=== PATIENT | female | born 1935 | race Caucasian/White ===

== ENCOUNTER 2020-06-16 10:05 | Emergency (ER) | payer MEDICARE, OTHER ==
--- NOTE | 2020-06-16 11:22 | EDM.PDOC ---
ED HPI GENERAL MEDICAL PROBLEM - General Chief Complaint: Gastrointestinal Problem Stated Complaint: WEAKNESS Time Seen by Provider: 06/16/20 11:00 Source of Information: Reports: Patient, Family History Limitations: Reports: No Limitations - History of Present Illness INITIAL COMMENTS - FREE TEXT/NARRATIVE: 85-year-old female who has had watery diarrhea for the past 4 days. Tested for Covid on Monday, was informed yesterday that that was negative. No shortness of breath, fevers, blood in the diarrhea or nausea or vomiting. It tends to be worse when she gets up in the morning. She had another large episode of watery diarrhea this morning and felt really weak so felt she should be checked. She ambulated into the emergency room under her own power. She is using some Imodium to slow the diarrhea down. Onset: Gradual Duration: Day(s): (4 days) Associated Symptoms: Reports: Weakness, Other (Lightheaded with activity) - Related Data Allergies Allergy/AdvReac Type Severity Reaction Status Date / Time amlodipine Allergy Swelling Verified 03/17/20 13:37 mesalamine [From Lialda] Allergy Renal Verified 03/17/20 13:37 Failure Home Meds: Home Meds Aspirin [Ecotrin EC] 81 mg PO DAILY 06/24/19 [History] Ibuprofen 200 mg PO Q4H PRN 06/24/19 [History] Levothyroxine [Synthroid] 50 mcg PO DAILY 06/24/19 [History] Losartan/Hydrochlorothiazide [Losartan-HCTZ 100-25 MG] 1 tab PO DAILY 06/24/19 [History] Multivitamin with Minerals [Multiple Vitamin] 1 tab PO DAILY 06/24/19 [History] amLODIPine [Norvasc] 2.5 mg PO DAILY 06/24/19 [History] Past Medical History HEENT History: Reports: Impaired Vision Cardiovascular History: Reports: None Respiratory History: Reports: None Gastrointestinal History: Reports: None Genitourinary History: Reports: None 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 left hip pain Neurological History: Reports: None Psychiatric History: Reports: None Endocrine/Metabolic History: Reports: None Hematologic History: Reports: None Immunologic History: Reports: None Oncologic (Cancer) History: Reports: None Dermatologic History: Reports: None - Infectious Disease History Infectious Disease History: Reports: Chicken Pox, Measles, Mumps - Past Surgical History Head Surgeries/Procedures: Reports: None HEENT Surgical History: Reports: None Musculoskeletal Surgical History: Reports: Shoulder Replacement Other Musculoskeletal Surgeries/Procedures:: left Social & Family History - Tobacco Use Tobacco Use Status *Q: Never Tobacco User - Caffeine Use Caffeine Use: Reports: Coffee, Tea - Recreational Drug Use Recreational Drug Use: No ED ROS GENERAL - Review of Systems Review Of Systems: See Below Constitutional: Reports: Malaise. Denies: Fever, Chills HEENT: Reports: No Symptoms Respiratory: Denies: Shortness of Breath Cardiovascular: Denies: Chest Pain GI/Abdominal: Reports: Diarrhea. Denies: Abdominal Pain, Nausea Musculoskeletal: Reports: No Symptoms Skin: Reports: No Symptoms Neurological: Reports: Dizziness, Weakness Psychiatric: Reports: No Symptoms ED EXAM, GI/ABD - Physical Exam Exam: See Below Exam Limited By: No Limitations General Appearance: Alert, No Apparent Distress Eyes: Bilateral: Normal Appearance Head: Atraumatic Respiratory/Chest: Lungs Clear Cardiovascular: Regular Rate, Rhythm. No: Tachycardia GI/Abdominal Exam: Normal Bowel Sounds (Bowel sounds are very active), Soft. No: Tender Extremities: No: Pedal Edema Neurological: Alert, Oriented, No Motor/Sensory Deficits Psychiatric: Normal Affect, Normal Mood Skin Exam: Warm, Dry Course - Vital Signs Last Recorded V/S: Last Vital Signs Temp 98.2 F 06/16/20 10:47 Pulse 88 06/16/20 10:47 Resp 16 06/16/20 10:47 BP 104/47 L 06/16/20 10:47 Pulse Ox 99 06/16/20 10:47 - Orders/Labs/Meds Orders: Active Orders 24 hr Category Date Time Status CULTURE STOOL + SHIGATOX [RM] Stat Lab 06/16/20 11:16 Ordered WBC, STOOL [OP] Stat Lab 06/16/20 11:16 Ordered Labs: Laboratory Tests 06/16/20 06/16/20 Range/Units 11:27 11:27 WBC 7.8 (4.5-11.0) K/uL RBC 3.71 (3.30-5.50) M/uL Hgb 11.0 L (12.0-15.0) g/dL Hct 34.4 L (36.0-48.0) % MCV 93 (80-98) fL MCH 30 (27-31) pg MCHC 32 (32-36) % Plt Count 337 (150-400) K/uL Add Manual Diff Yes Neutrophils % (Manual) 63 (36-66) % Band Neutrophils % 5 (5-11) % Lymphocytes % (Manual) 19 L (24-44) % Monocytes % (Manual) 13 H (2-6) % Sodium 139 L (140-148) mmol/L Potassium 3.2 L (3.6-5.2) mmol/L Chloride 101 (100-108) mmol/L Carbon Dioxide 26 (21-32) mmol/L Anion Gap 15.2 H (5.0-14.0) mmol/L BUN 30 H (7-18) mg/dL Creatinine 1.3 H (0.6-1.0) mg/dL Est Cr Clr Drug Dosing 25.48 mL/min Estimated GFR (MDRD) 39 L (>60) Glucose 114 H (74-106) mg/dL Calcium 8.7 (8.5-10.1) mg/dL Total Bilirubin 0.5 (0.2-1.0) mg/dL AST 11 L (15-37) U/L ALT 18 (12-78) U/L Alkaline Phosphatase 77 (46-116) U/L Total Protein 6.5 (6.4-8.2) g/dL Albumin 3.0 L (3.4-5.0) g/dL Globulin 3.5 (2.3-3.5) g/dL Albumin/Globulin Ratio 0.9 L (1.2-2.2) Meds: Medications Discontinued Medications Generic Name Dose Route Start Last Admin Trade Name Freq PRN Reason Stop Dose Admin Sodium Chloride 1,000 mls @ 1,000 mls/hr 06/16/20 11:30 06/16/20 11:23 Normal Saline IV 1,000 mls/hr ASDIRECTED [facility] Administration - Re-Assessments/Exams Free Text/Narrative Re-Assessment/Exam: 06/16/20 12:40 1 L normal saline was initiated and CBC CMP ordered. Stool sample was attempted to be collected. Labs returned reassuring other than mild volume contraction or dehydration. Despite being in the emergency room for over 2 hours she was unable to give a sample. She will be discharged and will recheck in 2 to 3 days if not impr oving. Departure - Departure Time of Disposition: 14:02 Disposition: Home, Self-Care 01 Clinical Impression: Dehydration, mild Diarrhea Qualifiers: Diarrhea type: unspecified type Qualified Code(s): R19.7 - Diarrhea, unspecified - Discharge Information Instructions: Diarrhea, Adult Referrals: Chau Spangler MD [Primary Care Provider] - Forms: ED Department Discharge Care Plan Goals: Increase activity as tolerated, attempt to stay hydrated with fluids and return in 2 to 3 days if not improving satisfactorily. Return sooner anytime if you feel you are worsening such as fever, increased pain or worsening diarrhea. Imodium would be helpful to slow down the diarrhea over the next few days. Sepsis Event Note (ED) - Evaluation Sepsis Screening Result: No Definite Risk - Focused Exam Vital Signs: Vital Signs Temp Pulse Resp BP Pulse Ox 06/16/20 10:47 98.2 F 88 16 104/47 L 99 06/16/20 10:44 98.2 F 88 16 104/47 L 99 - My Orders Last 24 Hours: My Active Orders 06/16/20 11:16 CULTURE STOOL + SHIGATOX [RM] Stat WBC, STOOL [OP] Stat - Assessment/Plan Last 24 Hours: My Active Orders 06/16/20 11:16 CULTURE STOOL + SHIGATOX [RM] Stat WBC, STOOL [OP] Stat
[2020-06-16] MEDS ORDERED: Sodium Chloride 0.9% 1,000 ML IV SCH (11:30)
== END 2020-06-16 13:10 | disposition home or self-care (01) ==
LOC: JP.ED 10:05
DX: E86.0 Dehydration (principal); R19.7 Diarrhea, unspecified; Z88.8 Allergy status to other drugs, medicaments and biological substances; Z79.82 Long term (current) use of aspirin; Z79.899 Other long term (current) drug therapy
CPT/HCPCS: 36415; 80053; 85025; 99284; J7030; 99283

== ENCOUNTER 2020-06-19 14:34 | Emergency (ER) | payer MEDICARE, OTHER ==
--- NOTE | 2020-06-19 15:32 | EDM.PDOC ---
ED HPI GENERAL MEDICAL PROBLEM - General Chief Complaint: Gastrointestinal Problem Stated Complaint: DIARRHEA Time Seen by Provider: 06/19/20 14:50 Source of Information: Reports: Patient, Family History Limitations: Reports: No Limitations - History of Present Illness INITIAL COMMENTS - FREE TEXT/NARRATIVE: 85-year-old female who I saw 3 days ago with persistent diarrhea and weakness, also mild dehydration, returns today because she is still having some diarrhea. She thinks she is slowly improving, she took Imodium once last evening. She just still feels weak and is wondering why she is not better. No shortness of breath or chest pain, no significant abdominal pain, no blood in the diarrhea. Onset: Gradual Duration: Day(s): (Symptoms have been persistent for the last several days) Associated Symptoms: Reports: Malaise, Weakness. Denies: Fever/Chills, Nausea/Vomiting Right Hip Pain Score (Numeric/FACES): 8 - Related Data Allergies Allergy/AdvReac Type Severity Reaction Status Date / Time amlodipine Allergy Swelling Verified 06/19/20 14:52 mesalamine [From Lialda] Allergy Renal Verified 06/19/20 14:52 Failure Home Meds: Home Meds Aspirin [Ecotrin EC] 81 mg PO DAILY 06/24/19 [History] Ibuprofen 200 mg PO Q4H PRN 06/24/19 [History] Levothyroxine [Synthroid] 50 mcg PO DAILY 06/24/19 [History] Losartan/Hydrochlorothiazide [Losartan-HCTZ 100-25 MG] 1 tab PO DAILY 06/24/19 [History] Multivitamin with Minerals [Multiple Vitamin] 1 tab PO DAILY 06/24/19 [History] amLODIPine [Norvasc] 2.5 mg PO DAILY 06/24/19 [History] Past Medical History HEENT History: Reports: Impaired Vision Cardiovascular History: Reports: Hypertension Respiratory History: Reports: None Gastrointestinal History: Reports: None Genitourinary History: Reports: None 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 left hip pain Neurological History: Reports: None Psychiatric History: Reports: None Endocrine/Metabolic History: Reports: Hypothyroidism Hematologic History: Reports: None Immunologic History: Reports: None Oncologic (Cancer) History: Reports: None Dermatologic History: Reports: None - Infectious Disease History Infectious Disease History: Reports: Chicken Pox, Measles, Mumps - Past Surgical History Head Surgeries/Procedures: Reports: None HEENT Surgical History: Reports: None Musculoskeletal Surgical History: Reports: Shoulder Replacement Other Musculoskeletal Surgeries/Procedures:: left Social & Family History - Tobacco Use Tobacco Use Status *Q: Never Tobacco User Second Hand Smoke Exposure: No - Caffeine Use Caffeine Use: Reports: Coffee, Tea - Alcohol Use Days Per Week of Alcohol Use: 0 - Recreational Drug Use Recreational Drug Use: No ED ROS GENERAL - Review of Systems Review Of Systems: See Below Constitutional: Denies: Fever, Chills Respiratory: Denies: Shortness of Breath Cardiovascular: Denies: Chest Pain GI/Abdominal: Reports: Diarrhea, Decreased Appetite. Denies: Abdominal Pain : Reports: No Symptoms Musculoskeletal: Reports: Other (Hip pain which is chronic) Skin: Reports: No Symptoms Neurological: Reports: No Symptoms ED EXAM, GI/ABD - Physical Exam Exam: See Below Exam Limited By: No Limitations General Appearance: Alert, No Apparent Distress Eyes: Bilateral: Normal Appearance Respiratory/Chest: No Respiratory Distress GI/Abdominal Exam: Soft, Other (Very hyperactive bowel sounds today, no significant tenderness to palpation) Neurological: Alert, Oriented Psychiatric: Normal Affect, Normal Mood Course - Vital Signs Last Recorded V/S: Last Vital Signs Temp 97.8 F 06/19/20 14:50 Pulse 86 06/19/20 14:50 Resp 16 06/19/20 14:50 BP 113/58 L 06/19/20 14:50 Pulse Ox 98 06/19/20 14:50 - Orders/Labs/Meds Orders: Active Orders 24 hr Category Date Time Status CULTURE STOOL + SHIGATOX [RM] Stat Lab 06/19/20 15:56 Results Clostridium [CLOS DIFFICILE PCR W/REFLEX] [RM] Stat Lab 06/19/20 15:56 Results - Re-Assessments/Exams Free Text/Narrative Re-Assessment/Exam: 06/19/20 15:33 We will attempt to get a stool sample again today, patient was fed a small amount of food to see if it would trigger diarrhea. I do not think any reevaluation of labs is necessary. 06/19/20 15:57 After about 40 minutes the patient was able to give a stool sample, very watery somewhat greenish in color and foamy and appearance. Stool was sent for WBC, C. difficile, and culture. 06/19/20 17:32 C. difficile surprisingly was positive, patient will be put on 125 mg of oral vancomycin 3 times a day. She can recheck next week if not improving. Departure - Departure Time of Disposition: 17:45 Disposition: Home, Self-Care 01 Clinical Impression: C. difficile diarrhea - Discharge Information Instructions: Clostridioides Difficile Infection, [id number] Referrals: Chau Spangler MD [Primary Care Provider] - Forms: ED Department Discharge Care Plan Goals: Take antibiotic 3 times a day for at least 10 days. Stay hydrated and increase activity and diet as tolerated. Consider rechecking next week if not improving satisfactorily. Sepsis Event Note (ED) - Evaluation Sepsis Screening Result: No Definite Risk - Focused Exam Vital Signs: Vital Signs Temp Pulse Resp BP Pulse Ox 06/19/20 14:50 97.8 F 86 16 113/58 L 98 - My Orders Last 24 Hours: My Active Orders 06/19/20 15:56 CULTURE STOOL + SHIGATOX [RM] Stat Clostridium [CLOS DIFFICILE PCR W/REFLEX] [RM] Stat - Assessment/Plan Last 24 Hours: My Active Orders 06/19/20 15:56 CULTURE STOOL + SHIGATOX [RM] Stat Clostridium [CLOS DIFFICILE PCR W/REFLEX] [RM] Stat
== END 2020-06-19 17:45 | disposition home or self-care (01) ==
LOC: JP.ED 14:34
DX: A04.72 Enterocolitis due to Clostridium difficile, not specified as recurrent (principal); I10 Essential (primary) hypertension; E03.9 Hypothyroidism, unspecified; Z79.82 Long term (current) use of aspirin; Z79.899 Other long term (current) drug therapy; Z88.8 Allergy status to other drugs, medicaments and biological substances
CPT/HCPCS: 87046; 87493; 87899; 89055; 99283; 99284

== ENCOUNTER 2020-07-27 05:11 | Inpatient (IN) | payer MEDICARE, OTHER ==
[2020-07-27] MEDS: Nozin Nasal Sanitizer NASBOTH SCH ×2 (06:24→21:41)
[2020-07-27] MEDS ORDERED: Lactated Ringers 1,000 ML IV SCH (06:30)
[2020-07-27] MEDS ORDERED: Povidone-Iodine 10% Soln 118.25 ML Bottle ONE (06:38)
[2020-07-27] MEDS ORDERED: ceFAZolin 2 GM in Premix Bag 1 BAG IV ONE (07:00)
[2020-07-27] MEDS ORDERED: fentaNYL 100 MCG/2 ML SDV ONE (07:26)
[2020-07-27] MEDS ORDERED: Propofol 200 MG/20 ML SDV ONE (07:26)
[2020-07-27] MEDS ORDERED: Midazolam 1 MG/ML 2 ML SDV ONE (07:26)
[2020-07-27] MEDS ORDERED: Lactated Ringers 1,000 ML ONE (08:24)
[2020-07-27] MEDS ORDERED: ePHEDrine 50 MG/ML SDV ONE (08:26)
[2020-07-27] MEDS ORDERED: Magnesium Hydroxide 400 MG/5 ML Susp 30 ML Cup PO PRN (09:35)
[2020-07-27] MEDS ORDERED: Morphine 2 MG/ML SYRINGE IV PRN (09:35)
[2020-07-27] MEDS ORDERED: Acetaminophen 325 MG Tab PO PRN (09:35)
[2020-07-27] MEDS ORDERED: Ondansetron 4 MG/2 ML SDV IVPUSH PRN (09:35)
[2020-07-27] MEDS ORDERED: Acetaminophen/HYDROcodone 325-5 MG Tab PO PRN (09:35)
--- NOTE | 2020-07-27 13:03 | CR ---
Pelvis 1V or 2V CLINICAL HISTORY: Postop FINDINGS: Patient is status post total left hip arthroplasty. Components appear well seated. There is some intra-articular and subcutaneous air. IMPRESSION: Status post total left hip arthroplasty
[2020-07-27] MEDS: ceFAZolin 1 GM in Premix Bag 1 BAG IV SCH ×2 (14:16→21:41)
[2020-07-27] MEDS: Acetaminophen/oxyCODONE 325-5 MG Tab PO PRN ×3 (14:37→22:40)
[2020-07-27] MEDS: Sodium Chloride 0.9% 1,000 ML IV SCH (16:11)
[2020-07-27] MEDS ORDERED: Nozin Nasal Sanitizer NASBOTH SCH (21:00)
[2020-07-28] MEDS: ceFAZolin 1 GM in Premix Bag 1 BAG IV SCH (06:15)
[2020-07-28] MEDS: Levothyroxine 50 MCG Tab PO SCH (07:55)
[2020-07-28] MEDS ORDERED: amLODIPine 5 MG Tab PO SCH (09:00)
[2020-07-28] MEDS: Sodium Chloride 0.9% 1,000 ML IV SCH (09:16)
[2020-07-28] MEDS: Hydrochlorothiazide 25 MG Tab PO SCH (09:18)
[2020-07-28] MEDS: Lactobacillus Rhamnosus GG (Probiotic) Cap PO SCH (09:18)
[2020-07-28] MEDS: Enoxaparin 30 MG/0.3 ML Syringe SUBCUT SCH (09:18)
[2020-07-28] MEDS: Docusate Sodium 100 MG Cap PO SCH (09:18)
[2020-07-28] MEDS: Nozin Nasal Sanitizer NASBOTH SCH ×2 (09:18→20:26)
[2020-07-28] MEDS: Losartan 50 MG Tab PO SCH (09:19)
--- NOTE | 2020-07-28 12:10 | PCM.SURGPN ---
- General Info Date of Service: 07/28/20 Date of Surgery/Procedure: 07/27/20 POD#: 1 Post-Op Diagnosis: left hip osteoarthritis Functional Status: Reports: Pain Controlled, Tolerating Diet, Ambulating - Review of Systems General: Reports: No Symptoms HEENT: Reports: No Symptoms Pulmonary: Reports: No Symptoms Cardiovascular: Reports: No Symptoms Gastrointestinal: Reports: No Symptoms, Nausea (nausea this morning, which has since resolved ) Musculoskeletal: Reports: Leg Pain (left ), Joint Pain (left hip ) Skin: Reports: No Symptoms Neurological: Reports: No Symptoms Psychiatric: Reports: No Symptoms - Patient Data Vitals - Most Recent: Last Vital Signs Temp 96.9 F 07/28/20 11:00 Pulse 80 07/28/20 11:00 Resp 18 07/28/20 11:00 BP 141/48 H 07/28/20 11:00 Pulse Ox 97 07/28/20 11:00 Weight - Most Recent: 119 lb I&O - Last 24 Hours: Intake & Output 07/27/20 07/28/20 07/28/20 22:59 06:59 14:59 Intake Total 536 2522 592 Output Total 325 200 250 Balance 211 2322 342 Lab Results Last 24 Hrs: Laboratory Results - last 24 hr 07/28/20 Range/Units 06:03 WBC 7.2 (4.5-11.0) K/uL RBC 3.32 (3.30-5.50) M/uL Hgb 9.8 L D (12.0-15.0) g/dL Hct 31.2 L (36.0-48.0) % MCV 94 (80-98) fL MCH 30 (27-31) pg MCHC 31 L (32-36) % Plt Count 274 (150-400) K/uL Med Orders - Current: Current Medications Acetaminophen (Tylenol) 650 mg PO Q4H PRN PRN Reason: Pain/Fever Hydrocodone Bitart/Acetaminophen ([place] 325-5 Mg) 1 tab PO Q4H PRN PRN Reason: Pain Last Admin: 07/27/20 10:26 Dose: 1 tab Documented by: Amlodipine Besylate (Norvasc) 2.5 mg PO DAILY [facility] Bandage/Support Products ( Nasal Electro Plater) 1 applic NASBOTH BID [facility] Stop: 08/02/20 21:01 Last Admin: 07/28/20 09:18 Dose: 1 applic Documented by: Docusate Sodium (Colace) 100 mg PO DAILY [facility] Last Admin: 07/28/20 09:18 Dose: 100 mg Documented by: Enoxaparin Sodium (Lovenox) 30 mg SUBCUT DAILY [facility] Last Admin: 07/28/20 09:18 Dose: 30 mg Documented by: Hydrochlorothiazide (Hydrochlorothiazide) 25 mg PO DAILY [facility] Last Admin: 07/28/20 09:18 Dose: 25 mg Documented by: Sodium Chloride (Normal Saline) 1,000 mls @ 125 mls/hr IV ASDIRECTED [facility] Last Admin: 07/28/20 09:16 Dose: 125 mls/hr Documented by: Lactobacillus Rhamnosus (Culturelle) 1 cap PO DAILY [facility] Last Admin: 07/28/20 09:18 Dose: 1 cap Documented by: Levothyroxine Sodium (Synthroid) 50 mcg PO DAILY@0730 [facility] Last Admin: 07/28/20 07:55 Dose: 50 mcg Documented by: Losartan Potassium (Cozaar) 100 mg PO DAILY [facility] Last Admin: 07/28/20 09:19 Dose: 100 mg Documented by: Magnesium Hydroxide (Milk Of Magnesia) 30 ml PO Q6H PRN PRN Reason: Stool Softener Morphine Sulfate (Morphine) 1 mg IV Q1H PRN PRN Reason: Pain Last Admin: 07/27/20 12:09 Dose: 1 mg Documented by: Ondansetron HCl (Zofran) 4 mg IVPUSH Q6H PRN PRN Reason: Nausea/Vomiting Last Admin: 07/28/20 07:17 Dose: 4 mg Documented by: Oxycodone/Acetaminophen (Percocet 325-5 Mg) 1 - 2 tab PO Q4H PRN PRN Reason: Pain Last Admin: 07/27/20 22:40 Dose: 2 tab Documented by: Discontinued Medications Ephedrine Sulfate (Ephedrine Sulfate) Confirm Administered Dose 50 mg .ROUTE .STK-MED ONE Stop: 07/27/20 08:27 Fentanyl (Sublimaze) Confirm Administered Dose 100 mcg .ROUTE .STK-MED ONE Stop: 07/27/20 07:27 Cefazolin Sodium/Dextrose 2 gm (/ Premix) 50 mls @ 100 mls/hr IV ONETIME ONE Stop: 07/27/20 07:29 Last Admin: 07/27/20 07:44 Dose: 100 mls/hr Documented by: Lactated Ringer's (Ringers, Lactated) 1,000 mls @ 75 mls/hr IV ASDIRECTED [facility] Last Admin: 07/27/20 06:45 Dose: 75 mls/hr Documented by: Lactated Ringer's (Ringers, Lactated) Confirm Administered Dose 1,000 mls @ as directed .ROUTE .STK-MED ONE Stop: 07/27/20 08:25 Cefazolin Sodium/Dextrose 1 gm (/ Premix) 50 mls @ 100 mls/hr IV Q8H [facility] Stop: 07/28/20 06:29 Last Admin: 07/28/20 06:15 Dose: 100 mls/hr Documented by: Midazolam HCl (Versed 1 Mg/Ml) Confirm Administered Dose 2 mg .ROUTE .STK-MED ONE Stop: 07/27/20 07:27 Povidone Iodine (Betadine 10% Soln) Confirm Administered Dose 1 ml .ROUTE .STK- MED ONE Stop: 07/27/20 06:39 Last Admin: 07/27/20 08:29 Dose: 40 ml Documented by: Propofol (Diprivan 20 Ml) Confirm Administered Dose 200 mg .ROUTE .STK-MED ONE Stop: 07/27/20 07:27 - Exam Wound/Incisions: Dressing Dry and Intact General: Alert, Oriented, Cooperative, No Acute Distress Extremities: Pedal Edema (very mild, left ), Leg Pain (left ), Limited Range of Motion (left hip joint ) Skin: Dry, Intact Neurological: No New Focal Deficit Psy/Mental Status: Alert, Normal Affect, Normal Mood Sepsis Event Note - Evaluation Sepsis Screening Result: No Definite Risk - Focused Exam Vital Signs: Vital Signs Temp Pulse Resp BP BP Pulse Ox 07/28/20 11:00 96.9 F 80 18 141/48 H 97 07/28/20 09:19 125/56 L 07/28/20 07:23 97.9 F 76 16 125/56 L 93 L 07/28/20 05:00 99.3 F 79 18 98/58 L 97 07/28/20 00:36 98.4 F 77 18 98/50 L 98 - Problem List & Annotations (1) Status post total hip replacement, left SNOMED Code(s): 364738628358, 867600864681 Code(s): Z96.642 - PRESENCE OF LEFT ARTIFICIAL HIP JOINT Status: Acute Current Visit: Yes (2) Posthemorrhagic anemia SNOMED Code(s): 849641940 Code(s): D50.0 - IRON DEFICIENCY ANEMIA SECONDARY TO BLOOD LOSS (CHRONIC) Status: Acute Current Visit: Yes - Problem List Review Problem List Initiated/Reviewed/Updated: Yes - My Orders Last 24 Hours: Active Orders 24 hr Category Date Time Status DC Contreras Catheter [Urinary Catheter Removal] [RC] PER Care 07/28/20 12:02 Active UNIT ROUTINE Regular Diet [DIET] Diet 07/27/20 Lunch Active BASIC METABOLIC PANEL,BMP [CHEM] Routine Lab 07/29/20 09:00 Ordered Docusate Sodium [Colace] Med 07/28/20 09:00 Active 100 mg PO DAILY Enoxaparin [Lovenox] Med 07/28/20 09:00 Active 30 mg SUBCUT DAILY Lactobacillus Rhamnosus GG [Culturelle] Med 07/28/20 09:00 Active 1 cap PO DAILY Levothyroxine [Synthroid] Med 07/28/20 07:30 Active 50 mcg PO DAILY@0730 Losartan [Cozaar] Med 07/28/20 09:00 Active 100 mg PO DAILY amLODIPine [Norvasc] Med 07/28/20 09:00 Hold 2.5 mg PO DAILY hydroCHLOROthiazide Med 07/28/20 09:00 Active 25 mg PO DAILY Convert IV to Saline Lock [OM.PC] Routine Oth 07/28/20 12:03 Ordered Medication Orders Acetaminophen (Tylenol) 650 mg PO Q4H PRN PRN Reason: Pain/Fever Hydrocodone Bitart/Acetaminophen ([place] 325-5 Mg) 1 tab PO Q4H PRN PRN Reason: Pain Last Admin: 07/27/20 10:26 Dose: 1 tab Documented by: BETINA Amlodipine Besylate (Norvasc) 2.5 mg PO DAILY [facility] Bandage/Support Products ( Nasal Electro Plater) 1 applic NASBOTH BID [facility] Stop: 08/02/20 21:01 Last Admin: 07/28/20 09:18 Dose: 1 applic Documented by: Admin: 07/27/20 21:41 Dose: 1 applic Documented by: Admin: 07/27/20 06:24 Dose: 1 applic Documented by: TORY Docusate Sodium (Colace) 100 mg PO DAILY [facility] Last Admin: 07/28/20 09:18 Dose: 100 mg Documented by: BETINA Enoxaparin Sodium (Lovenox) 30 mg SUBCUT DAILY [facility] Last Admin: 07/28/20 09:18 Dose: 30 mg Documented by: BETINA Hydrochlorothiazide (Hydrochlorothiazide) 25 mg PO DAILY [facility] Last Admin: 07/28/20 09:18 Dose: 25 mg Documented by: BETINA Sodium Chloride (Normal Saline) 1,000 mls @ 125 mls/hr IV ASDIRECTED [facility] Last Admin: 07/28/20 09:16 Dose: 125 mls/hr Documented by: Infusion: 07/28/20 00:11 Dose: 125 mls/hr Documented by: Admin: 07/27/20 16:11 Dose: 125 mls/hr Documented by: BETINA Lactobacillus Rhamnosus (Culturelle) 1 cap PO DAILY [facility] Last Admin: 07/28/20 09:18 Dose: 1 cap Documented by: BETINA Levothyroxine Sodium (Synthroid) 50 mcg PO DAILY@0730 [facility] Last Admin: 07/28/20 07:55 Dose: 50 mcg Documented by: BETINA Losartan Potassium (Cozaar) 100 mg PO DAILY [facility] Last Admin: 07/28/20 09:19 Dose: 100 mg Documented by: BETINA Magnesium Hydroxide (Milk Of Magnesia) 30 ml PO Q6H PRN PRN Reason: Stool Softener Morphine Sulfate (Morphine) 1 mg IV Q1H PRN PRN Reason: Pain Last Admin: 07/27/20 12:09 Dose: 1 mg Documented by: BETINA Ondansetron HCl (Zofran) 4 mg IVPUSH Q6H PRN PRN Reason: Nausea/Vomiting Last Admin: 07/28/20 07:17 Dose: 4 mg Documented by: BETINA Oxycodone/Acetaminophen (Percocet 325-5 Mg) 1 - 2 tab PO Q4H PRN PRN Reason: Pain Last Admin: 07/27/20 22:40 Dose: 2 tab Documented by: Admin: 07/27/20 18:32 Dose: 2 tab Documented by: Admin: 07/27/20 14:37 Dose: 2 tab Documented by: BETINA - Assessment Assessment (Free Text/Narrative):: Assessment: Patient is a pleasant 85 y/o female, POD#1, s/p left CHACHO. Patient tolerated surgery well with no complications. Patient was able to ambulate in room with FWW yesterday after the procedure. Participated in physical therapy today and ambulated 50 ft with FWW. Anticipate another physical therapy session this afternoon. Patient participated in occupational therapy session yesterday afternoon and this morning, able to complete ADLS with minimal assistance. Patient feels pain is being well managed at this time. Did have some nausea prior to breakfast this morning. Last pain medication prior to nausea was administered at 2240 yesterday evening, so seems unlikely the nausea is related to pain medications. Patient given Zofran and has not had any nausea/emesis since, but did decide to forgo breakfast. Has had some post-operative hypotension; home Amlodipine dose was held this morning. Patient has Amlodipine listed as an allergy; states years ago when she took it, she would swell up and stopped taking it. Recently restarted medication and reports she hasnt had any swelling concerns. Patient HgB did drop 3.4 units after operation. Patient had a transfusion prior to the surgery on 07/23/20, receiving 2 units of pRBCs. Unsure of what caused the anemia prior to operation. Suspect that acute posthemorrhagic anemia is contributing to her current HgB levels. Patient denies dyspnea and lightheadedness at this time. Patient anticipates discharge to home with home health; states daughter will also be staying with her through Monday to help. States her will also be available to help with laundry and cooking. Patient status changed from SDS to inpatient, as patient requires additional physical therapy services at this time to be safe for discharge to home. Exam: Left hip dressing is dry and intact. No surrounding erythema or warmth to touch. Very mild pedal edema of left leg. Plan: -Discontinued Contreras and IV fluids this afternoon -Continue with physical and occupational therapy while inpatient -Dressing change to be performed by orthopedic provider tomorrow -Anticipate discharge to home with home health referral, possibly tomorrow or , pending progress with physical therapy and mobility. -BMP ordered for tomorrow morning to re-assess potassium levels, as she was hypokalemic prior to operation.
[2020-07-28] MEDS: Acetaminophen/oxyCODONE 325-5 MG Tab PO PRN (20:26)
[2020-07-29] MEDS: Levothyroxine 50 MCG Tab PO SCH (07:40)
[2020-07-29] MEDS: Docusate Sodium 100 MG Cap PO SCH (09:01)
[2020-07-29] MEDS: Nozin Nasal Sanitizer NASBOTH SCH (09:01)
[2020-07-29] MEDS: Enoxaparin 30 MG/0.3 ML Syringe SUBCUT SCH (09:02)
[2020-07-29] MEDS: Hydrochlorothiazide 25 MG Tab PO SCH (09:02)
[2020-07-29] MEDS: Lactobacillus Rhamnosus GG (Probiotic) Cap PO SCH (09:02)
[2020-07-29] MEDS: Losartan 50 MG Tab PO SCH (09:04)
[2020-07-29] MEDS: Acetaminophen/oxyCODONE 325-5 MG Tab PO PRN (12:36)
--- NOTE | 2020-07-29 14:50 | PCM.DCSUM1 ---
Discharge Summary - Hospital Course Brief History: Patient is an 85 y/o female, s/p left CHACHO, POD #2. Patient had osteoarthritis of the left hip; she had tried conservative management with no significant pain relief. Due to failed conservative management and the severity of osteoarthritis on the xrays, patient opted for definitive surgical management. Diagnosis: Stroke: No Modified Amelia Scale: No Symptoms at All Modified Amelia Scale Score: 0 - Discharge Data Discharge Date: 07/29/20 Discharge Disposition: Home, W Home Health Agency 06 Condition: Good - Referral to Home Health Date of Face to Face Encounter: 07/29/20 Reason for Homebound Status: Able to ambulate with FWW safely and do ADLs with minimal assistance; available for help, home health for additional aid. Primary Care Physician: Chau Spangler MD Skilled Need: physical therapy, dressing change, showering assistance - Discharge Diagnosis/Problem(s) (1) Status post total hip replacement, left SNOMED Code(s): 499827923594, [id number] ICD Code: Z96.642 - PRESENCE OF LEFT ARTIFICIAL HIP JOINT Status: Acute Current Visit: Yes (2) Posthemorrhagic anemia SNOMED Code(s): 668861322 ICD Code: D50.0 - IRON DEFICIENCY ANEMIA SECONDARY TO BLOOD LOSS (CHRONIC) Status: Acute Current Visit: Yes - Patient Summary/Data Operative Procedure(s) Performed: Left Hip Total Arthroplasty Consults: Consultations 07/27/20 09:35 Consult to Case Management/Biochemistry Teacher [CONS] Routine Comment: Physician Instructions: Discharge placement post hip surgery Service(s) to be Consulted: Case Management PT Evaluation and Treatment [CONS] Routine Please Evaluate and Treat. PT Reason for Consult: Ambulation Special Instructions: posterior hip precautions, WBAT This query below is only for informational purposes and is not editable. PT Evaluation and Treatment [CONS] Routine Please Evaluate and Treat. PT Reason for Consult: Post op Ortho Surgery Hip Pending Discharge: Yes, 2- -3 days Special Instructions: Schedule first outpatient P.T. appointment 3 - 5 days post discharge This query below is only for informational purposes and is not editable. 07/27/20 09:39 OT Evaluation and Treatment [CONS] Routine Please Evaluate and Treat. OT Reason for Consult: ADL's Special Instructions: Status post Hip Surgery This query below is only for informational purposes and is not editable. Recommended Follow-up Testing/Procedures: 2 week follow up with orthopedic clinic Hospital Course: Patient is a pleasant 85 y/o female, s/p left total hip arthroplasty, POD#2. Patient tolerated surgery well with no major complications. Patient was ambulating in room with FWW the evening of the surgery. On POD #1, hatch was pulled and IV was saline locked. Patient participated in physical and occupational therapy services while in the hospital. On POD#1, patient was able to ambulate with FWW with physical therapy 100 feet. On POD#2, patient was able to successfully complete stairs with physical therapy and continued ambulation 100+ ft with FWW. Patient has 7 stairs at home; reports she feels able to do stairs at home after physical therapy session. On POD#1, patient worked with occupational therapy on ADLs; patient was given a leg lieutenant/deputy to assist getting in and out of bed. Patients hospital course was relatively uncomplicated. Patients pain has been well controlled throughout duration of her hospital stay. Patient did have some post-operative hypotension; her home Amlodipine dose was held on POD#1. Patient had some nausea on POD#1 relieved with Zofran. Patients potassium level was 3.5 prior to operation; a post-op BMP on POD#2 showed potassium in normal range at 3.9. Patient received a transfusion (2 units) prior to her operation on 07/23/21; patient unsure what was causing her anemia requiring a transfusion. HgB on POD#1 declined; acute posthemorrhagic anemia likely contributing to her current HgB levels. Patient denied any lightheadedness or dizziness. Dressing was changed on POD#2; incision appeared intact, healing well, with no surrounding erythema, drainage, nor warmth to touch. New dressing was applied. Shower instructions reviewed with patient. Patient expressed satisfaction with her pain level and desire to go home on POD#2. Patient feels safe for discharge to home with home health services. Will have at home who can help with some ADLs. Daughter will also be staying with patient through Monday for additional help. - Patient Instructions Diet: Usual Diet as Tolerated Activity: Apply Ice, Full Weight Bearing Showering/Bathing: Shower in AM Wound/Incision Care: Keep Operative Site/Wound Site Clean and Dry Notify Provider of: Fever, Increased Pain, Swelling and Redness, Drainage - Discharge Plan *PRESCRIPTION DRUG MONITORING PROGRAM REVIEWED*: Yes *COPY OF PRESCRIPTION DRUG MONITORING REPORT IN PATIENT LUL: Not Applicable Prescriptions/Med Rec: Acetaminophen/oxyCODONE [Percocet 325-5 MG] 1 - 2 each PO Q6HR PRN 6 Days #42 tab PRN Reason: Pain Home Medications: Home Meds Aspirin [Ecotrin EC] 81 mg PO DAILY 06/24/19 [History] Ibuprofen 200 mg PO Q4H PRN 06/24/19 [History] Levothyroxine [Synthroid] 50 mcg PO DAILY 06/24/19 [History] Losartan/Hydrochlorothiazide [Losartan-HCTZ 100-25 MG] 1 tab PO DAILY 06/24/19 [History] Multivitamin with Minerals [Multiple Vitamin] 1 tab PO DAILY 06/24/19 [History] amLODIPine [Norvasc] 2.5 mg PO DAILY 06/24/19 [History] Acetaminophen [Tylenol Extra Strength] 1 - 2 tab PO Q4HR PRN 07/16/20 [History] L.acidoph,Paracasei, B.lactis [Probiotic] 1 each PO DAILY 07/16/20 [History] traMADol [Ultram] 50 mg PO TID PRN 07/16/20 [History] Acetaminophen/oxyCODONE [Percocet 325-5 MG] 1 - 2 each PO Q6HR PRN 6 Days #42 tab 07/29/20 [Rx] Oxygen Therapy Mode: Room Air Referrals: Mendez Hills MD [Physician] - 08/11/20 1:30 pm (Please arrive 15 minutes early to register for your appointment.) - Discharge Summary/Plan Comment DC Time >30 min.: No Discharge Summary/Plan Comment: -Patient to discharge to home today with home health services referral. Daughter will stay with patient through Monday for additional help. -Dressing change performed this afternoon by orthopedic provider -Prescription sent for pain medication. Also reviewed taking aspirin BID until 2 week follow up apt with ortho. Patient to finish scheduled nasal spray. -Patient to follow up with orthopedic clinic in 2 weeks; encouraged patient to call if any questions/concerns arise prior to scheduled apt -Patient and agreeable and expressed understanding of this plan - General Info Date of Service: 07/29/20 Admission Dx/Problem (Free Text: Left hip osteoarthritis Functional Status: Reports: Pain Controlled, Tolerating Diet, Ambulating, Urinating - Review of Systems General: Reports: No Symptoms HEENT: Reports: No Symptoms Pulmonary: Reports: No Symptoms Cardiovascular: Reports: No Symptoms Gastrointestinal: Reports: No Symptoms Genitourinary: Reports: No Symptoms Musculoskeletal: Reports: Leg Pain (left ), Joint Pain (left hip ) Skin: Reports: No Symptoms Neurological: Reports: No Symptoms Psychiatric: Reports: No Symptoms - Patient Data Vitals - Most Recent: Last Vital Signs Temp 99.1 F 07/29/20 14:27 Pulse 80 07/29/20 14:27 Resp 16 07/29/20 14:27 BP 122/51 L 07/29/20 14:27 Pulse Ox 96 07/29/20 14:27 Weight - Most Recent: 119 lb I&O - Last 24 hours: Intake & Output 07/28/20 07/29/20 07/29/20 22:59 06:59 14:59 Intake Total 950 420 Output Total 450 Balance 950 -450 420 Lab Results - Last 24 hrs: Laboratory Results - last 24 hr 07/29/20 Range/Units 06:00 Sodium 140 (140-148) mmol/L Potassium 3.9 (3.6-5.2) mmol/L Chloride 105 (100-108) mmol/L Carbon Dioxide 26 (21-32) mmol/L Anion Gap 9.2 (5.0-14.0) mmol/L BUN 18 (7-18) mg/dL Creatinine 1.0 (0.6-1.0) mg/dL Est Cr Clr Drug Dosing 31.60 mL/min Estimated GFR (MDRD) 53 L (>60) Glucose 93 (74-106) mg/dL Calcium 8.5 (8.5-10.1) mg/dL Med Orders - Current: Current Medications Acetaminophen (Tylenol) 650 mg PO Q4H PRN PRN Reason: Pain/Fever Hydrocodone Bitart/Acetaminophen (Hendricks 325-5 Mg) 1 tab PO Q4H PRN PRN Reason: Pain Last Admin: 07/27/20 10:26 Dose: 1 tab Documented by: Amlodipine Besylate (Norvasc) 2.5 mg PO DAILY [facility] Last Admin: 07/29/20 09:03 Dose: 2.5 mg Documented by: Bandage/Support Products ( Nasal Software Writer) 1 applic NASBOTH BID [facility] Stop: 08/02/20 21:01 Last Admin: 07/29/20 09:01 Dose: 1 applic Documented by: Docusate Sodium (Colace) 100 mg PO DAILY [facility] Last Admin: 07/29/20 09:01 Dose: 100 mg Documented by: Enoxaparin Sodium (Lovenox) 30 mg SUBCUT DAILY [facility] Last Admin: 07/29/20 09:02 Dose: 30 mg Documented by: Hydrochlorothiazide (Hydrochlorothiazide) 25 mg PO DAILY [facility] Last Admin: 07/29/20 09:02 Dose: 25 mg Documented by: Sodium Chloride (Normal Saline) 1,000 mls @ 125 mls/hr IV ASDIRECTED [facility] Last Admin: 07/28/20 09:16 Dose: 125 mls/hr Documented by: Lactobacillus Rhamnosus (Culturelle) 1 cap PO DAILY [facility] Last Admin: 07/29/20 09:02 Dose: 1 cap Documented by: Levothyroxine Sodium (Synthroid) 50 mcg PO DAILY@0730 [facility] Last Admin: 07/29/20 07:40 Dose: 50 mcg Documented by: Losartan Potassium (Cozaar) 100 mg PO DAILY [facility] Last Admin: 07/29/20 09:04 Dose: 100 mg Documented by: Magnesium Hydroxide (Milk Of Magnesia) 30 ml PO Q6H PRN PRN Reason: Stool Softener Morphine Sulfate (Morphine) 1 mg IV Q1H PRN PRN Reason: Pain Last Admin: 07/27/20 12:09 Dose: 1 mg Documented by: Ondansetron HCl (Zofran) 4 mg IVPUSH Q6H PRN PRN Reason: Nausea/Vomiting Last Admin: 07/28/20 07:17 Dose: 4 mg Documented by: Oxycodone/Acetaminophen (Percocet 325-5 Mg) 1 - 2 tab PO Q4H PRN PRN Reason: Pain Last Admin: 07/29/20 12:36 Dose: 1 tab Documented by: Discontinued Medications Ephedrine Sulfate (Ephedrine Sulfate) Confirm Administered Dose 50 mg .ROUTE .STK-MED ONE Stop: 07/27/20 08:27 Fentanyl (Sublimaze) Confirm Administered Dose 100 mcg .ROUTE .STK-MED ONE Stop: 07/27/20 07:27 Cefazolin Sodium/Dextrose 2 gm (/ Premix) 50 mls @ 100 mls/hr IV ONETIME ONE Stop: 07/27/20 07:29 Last Admin: 07/27/20 07:44 Dose: 100 mls/hr Documented by: Lactated Ringer's (Ringers, Lactated) 1,000 mls @ 75 mls/hr IV ASDIRECTED [facility] Last Admin: 07/27/20 06:45 Dose: 75 mls/hr Documented by: Lactated Ringer's (Ringers, Lactated) Confirm Administered Dose 1,000 mls @ as directed .ROUTE .STK-MED ONE Stop: 07/27/20 08:25 Cefazolin Sodium/Dextrose 1 gm (/ Premix) 50 mls @ 100 mls/hr IV Q8H [facility] Stop: 07/28/20 06:29 Last Admin: 07/28/20 06:15 Dose: 100 mls/hr Documented by: Midazolam HCl (Versed 1 Mg/Ml) Confirm Administered Dose 2 mg .ROUTE .STK-MED ONE Stop: 07/27/20 07:27 Povidone Iodine (Betadine 10% Soln) Confirm Administered Dose 1 ml .ROUTE .STK- MED ONE Stop: 07/27/20 06:39 Last Admin: 07/27/20 08:29 Dose: 40 ml Documented by: Propofol (Diprivan 20 Ml) Confirm Administered Dose 200 mg .ROUTE .STK-MED ONE Stop: 07/27/20 07:27 - Exam General: Reports: Alert, Oriented, Cooperative, No Acute Distress Extremities: Pedal Edema (very mild, left ), Leg Pain (left ), Limited Range of Motion Skin: Reports: Dry, Intact Wound/Incisions: Reports: Dressing Dry and Intact, No Drainage Neurological: Reports: No New Focal Deficit Psy/Mental Status: Reports: Alert, Normal Affect, Normal Mood
--- NOTE | 2020-08-03 21:03 | OR ---
DATE OF PROCEDURE: 07/27/2020 SURGEON: Mendez Hills MD PREOPERATION DIAGNOSIS: Osteoarthritis of left hip. POSTOPERATIVE DIAGNOSIS: Severe osteoarthritis of left hip. PROCEDURE: Left total hip arthroplasty using Robb M/L taper stem size 9, 48 mm Trabecular Metal cup and a 32 mm femoral head with a -3.5 neck length. UTILITIES EQUIPMENT REPAIRER: KIARA Tenorio. ANESTHESIA: Spinal with sedation. INDICATIONS: Torri is a very pleasant 85-year-old female with history of progressive pain and limited range of motion in the left hip. She has noted progressive disability with activities of daily living including donning and doffing her shoes and socks. Increasing problems with prolonged standing and walking. X-rays and examination are consistent with end-stage osteoarthritis, joint space collapse and osteophyte formation. She now presents for left total hip arthroplasty. Risks, benefits, potential complications of procedure were discussed. Use of physician preschool teacher assistant for the case necessary for adequate retraction and exposure as well as manipulation of the leg during trialing and reduction. DESCRIPTION OF PROCEDURE: After adequate anesthesia was obtained, the patient placed in the lateral decubitus position and secured with a hip positioner. The left hip and leg were prepped and draped in a sterile fashion. Incision made of the greater trochanter, carried down through the subcutaneous tissues and hemostasis obtained with electrocautery. Tensor fascia was split in line with its fibers and a Charnley retractor was placed. Short external rotators were taken off the greater trochanter. The patient had very limited range of motion and minimal internal rotation could be obtained until the capsule was divided. This was divided in a T-fashion. The hip was then dislocated revealing significant arthritic changes of the head with deformity and peripheral osteophytes. Retractor was placed about the inferior femoral neck and femoral neck cut was then made with an oscillating saw. Retractors were placed about the acetabulum. Acetabular labrum was excised. Remaining central ligament and soft tissues were removed from the central acetabulum exposing the medial wall. Acetabulum was then sequentially reamed to 48 mm with very good subchondral bone. A 48 mm cup was then press-fit into position with excellent fixation. Additional fixation was obtained with a single acetabular screw. It was irrigated and a neutral liner was then tapped into position. Attention was returned to the femur where a box osteotome was used to remove the lateral femoral neck cortex. Hand awl was placed down the canal along with the lateralizing rasp. The canal was then sequentially broached up to 9 mm. This was trialed with a -3.5 neck length, which showed excellent stability in flexion, adduction, and internal rotation, and appeared to recreate the limb length. The trials were removed. The hip was irrigated. The final stem was tapped into position. Again, a trial reduction was done with a -3.5 neck length and a final implant was selected and tapped on to the trunnion. This was reduced and again taken through range of motion, found to be very stable and clinically reproduced equal limb lengths. The hip was irrigated. Piriformis was reattached through the greater trochanter with #2 Ethibond. The split portion of the capsule was repaired with #2 Ethibond. Tensor fascia was closed in a running locking fashion. The skin was closed with 2-0 Vicryl and running 3-0 Monocryl. Steri-Strips were applied. Sterile dressing was placed. The patient tolerated procedure well. There were no complications, taken from the operating room in stable condition. Mendez Hills MD /[id number]
== END 2020-07-29 15:33 | disposition home health service (06) | DRG 554 ==
LOC: JP.SDS 05:11 → JP.MS 09:35 → JP.SDS 09:36 → JP.MS 09:36
PROVIDERS: ADMIT Specialist; ATTEND Specialist
DX: M16.12 Unilateral primary osteoarthritis, left hip (principal); D62 Acute posthemorrhagic anemia; I97.3 Postprocedural hypertension; Z96.612 Presence of left artificial shoulder joint; Z98.890 Other specified postprocedural states; I10 Essential (primary) hypertension; E03.9 Hypothyroidism, unspecified; Z87.19 Personal history of other diseases of the digestive system; Z79.82 Long term (current) use of aspirin; Z79.890 Hormone replacement therapy; Z79.899 Other long term (current) drug therapy; Z88.8 Allergy status to other drugs, medicaments and biological substances; G47.33 Obstructive sleep apnea (adult) (pediatric)
CPT/HCPCS: 27130 ×3; 36415; 80048; 85027; 86850; 86900; 86901; A9270; C1713; C1776 ×4; J0690; J2250; J2704; J3010; J7120 ×2; 72170; 72170-26; 97110-GP; 97161-GP; 97165-GO; 97530-GP; 97535-GO; 99024; J1650; J2270; J2405; J7030

== ENCOUNTER 2021-12-25 08:03 | Emergency (ER) | payer MEDICARE, OTHER ==
[2021-12-25] MEDS ORDERED: Cyclobenzaprine 10 MG Tab PO ONE (09:01)
[2021-12-25] MEDS ORDERED: Ketorolac 30 MG/ML SDV IM ONE (09:01)
== END 2021-12-25 10:15 | disposition home or self-care (01) ==
LOC: JP.ED 08:03
DX: M54.50 Low back pain, unspecified (principal); I10 Essential (primary) hypertension; E03.9 Hypothyroidism, unspecified; Z88.0 Allergy status to penicillin; Z79.82 Long term (current) use of aspirin; Z79.899 Other long term (current) drug therapy
CPT/HCPCS: 96372; 99283; A9270-GY; J1885